=== PATIENT | female | born 1925 | race Caucasian/White ===

== ENCOUNTER 2016-11-16 15:03 | Inpatient (IN) | payer BC ==
[~2016-11-16] VITALS: Ht 167.6 cm; Wt 86.0 kg
[2016-11-16] MEDS ORDERED: ELIQUIS2.5 MG PO (15:13)
[2016-11-16] MEDS ORDERED: COZAAR100 MG PO (15:13)
[2016-11-16] MEDS ORDERED: LIPITOR80 MG PO (15:14)
[2016-11-16] MEDS ORDERED: HYDROCHLOROTHIA25 MG PO (15:15)
[2016-11-16] MEDS ORDERED: METOPROLOL TAR100 MG PO (15:15)
[2016-11-16] MEDS ORDERED: METOPROLOL TART50 MG PO (15:15)
[2016-11-16] MEDS ORDERED: MAGNESIUM250 MG PO (15:16)
[2016-11-16] MEDS ORDERED: FISH OIL 1,0001 EAC7 PO (15:16)
[2016-11-16] MEDS ORDERED: CALCIUM500 M4 PO (15:17)
[2016-11-16] MEDS ORDERED: VITAMIN D2000 UNI1 PO (15:18)
[2016-11-16 16:16] LABS: EOSINOPHIL (%) 1.7 % (0-5); EOSINOPHIL COUNT 0.2 K/uL (0-0.3); HEMATOCRIT 40.6 % (36.0-46.0); IMMATURE GRANULOCYTE (%) 0.6 % (0.0-0.7); IMMATURE GRANULOCYTE COUNT 0.1 K/uL; INSTRUMENT ABS NEUTROPHIL CT 7.7 K/uL; LYMPHOCYTE COUNT 1.9 K/uL (1.0-2.8); MCH 29.8 PG (29.0-34.0); MCHC 32.5 G/DL (30.0-36.0); MCV 91.6 FL (83-99); MEAN PLAT.VOLUME 10.2 uM^3 (9.5-12.4); MONOCYTE (%) 6.9 % (3-12); MONOCYTE COUNT 0.7 K/uL (0-0.8); NEUTROPHIL (%) 72.9 % (45-76); NEUTROPHIL COUNT 7.7 K/uL (1.8-6.4); PLATELET COUNT 178 K/uL (156-360); RBC DIS.WIDTH-CV 14.2 % (11.8-14.6); RBC DIS.WIDTH-SD 47.8 % (39-53); RED BLOOD COUNT 4.43 M/uL (3.80-5.20); WHITE BLOOD COUNT 10.5 K/uL (4.1-10.2)
[2016-11-16 16:24] LABS: CHLORIDE 108 mEq/L (99-109); SODIUM 140 mEq/L (136-147)
[2016-11-16 16:26] LABS: GLUCOSE 105 mg/dL (70-99); INTER. NORMALIZED RATIO 1.1; PROTHROMBIN TIME 11.1 (9.2-11.2); PTT 28.7 (25-32)
[2016-11-16 16:27] LABS: ANION GAP 11 MEQ/L (2-14)
[2016-11-16 16:29] LABS: GFR ESTIMATE (CALCULATED) 55 mL/min/
[2016-11-16 16:30] LABS: UREA NITROGEN (BUN) 29 mg/dL (9-23)
[2016-11-16] MEDS ORDERED: ELIQUIS5 MG PO (17:44)
[2016-11-16] MEDS ORDERED: STOOL SOFTENER250 MG PO (17:50)
[2016-11-16 20:12] LABS: TROP-I INTERPRETATION NEGATIVE; TROPONIN-I 0.03 ng/mL (0.0-0.30)
[2016-11-16 20:55] VITALS: BP 151/86
[2016-11-16 23:45] VITALS: BP 116/63
[2016-11-17 00:42] LABS: ADD MIUA? NO; BILIRUBIN NEGATIVE; BLOOD NEGATIVE; COLOR YELLOW ((YELLOW)); GLUCOSE (STRIP) NEGATIVE; KETONES NEGATIVE; LEUKOCYTES NEGATIVE; NITRITE NEGATIVE; PROTEIN (STRIP) NEGATIVE; SPECIFIC GRAVITY 1.017 (1.000-1.030); UCUL ADDED? NO; UROBILINOGEN 0.2 MG/DL (0.2-1.0)
[2016-11-17 03:29] LABS: TROP-I INTERPRETATION NEGATIVE; TROPONIN-I 0.09 ng/mL (0.0-0.30)
[2016-11-17 03:53] VITALS: BP 116/58
[2016-11-17 07:48] LABS: HEMATOCRIT 36.1 % (36.0-46.0); MCH 29.9 PG (29.0-34.0); MCHC 32.1 G/DL (30.0-36.0); MEAN PLAT.VOLUME 10.2 uM^3 (9.5-12.4); PLATELET COUNT 155 K/uL (156-360); RBC DIS.WIDTH-CV 14.5 % (11.8-14.6); RBC DIS.WIDTH-SD 49.9 % (39-53); RED BLOOD COUNT 3.88 M/uL (3.80-5.20); WHITE BLOOD COUNT 9.9 K/uL (4.1-10.2)
[2016-11-17 08:12] LABS: ALKALINE PHOSPHATASE 54 IU/L (3-129); ANION GAP 7 MEQ/L (2-14); CHLORIDE 108 MEQ/L (99-109); GFR ESTIMATE (CALCULATED) > 59 mL/min/; GLUCOSE 106 mg/dL (70-99); POTASSIUM 3.9 MEQ/L (3.7-5.4); SAMPLE HEMOLYSIS CHECK 0; SAMPLE ICTERIC CHECK 0; SAMPLE LIPEMIA CHECK 0; SODIUM 138 MEQ/L (136-147); TOTAL BILIRUBIN 0.8 MG/DL (0.0-1.0); UREA NITROGEN (BUN) 21 mg/dL (9-23)
[2016-11-17 08:15] LABS: TROP-I INTERPRETATION NEGATIVE; TROPONIN-I 0.09 ng/mL (0.0-0.30)
[2016-11-17 08:17] VITALS: BP 120/58
[2016-11-17 12:10] VITALS: BP 137/92
[2016-11-17 15:14] LABS: HEMATOCRIT 37.3 % (36.0-46.0); MCH 30.3 PG (29.0-34.0); MCHC 31.6 G/DL (30.0-36.0); MCV 95.6 FL (83-99); MEAN PLAT.VOLUME 10.5 uM^3 (9.5-12.4); PLATELET COUNT 147 K/uL (156-360); RBC DIS.WIDTH-CV 14.6 % (11.8-14.6); RBC DIS.WIDTH-SD 51.4 % (39-53)
[2016-11-17 15:19] LABS: WHITE BLOOD COUNT 18.8 K/uL (4.1-10.2)
[2016-11-17 16:23] VITALS: BP 146/82
[2016-11-17 19:28] VITALS: BP 115/59
[2016-11-17 23:29] VITALS: BP 123/61
[2016-11-18] VITALS (7 sets, daily range): BP systolic 74–131; BP diastolic 50–62
[2016-11-18 05:52] LABS: ANION GAP 9 MEQ/L (2-14); CHLORIDE 105 MEQ/L (99-109); GFR ESTIMATE (CALCULATED) > 59 mL/min/; GLUCOSE 112 mg/dL (70-99); POTASSIUM 3.5 MEQ/L (3.7-5.4); SAMPLE HEMOLYSIS CHECK 0; SAMPLE ICTERIC CHECK 0; SAMPLE LIPEMIA CHECK 0; SODIUM 135 MEQ/L (136-147); UREA NITROGEN (BUN) 15 mg/dL (9-23)
[2016-11-18 06:33] LABS: HEMATOCRIT 33.1 % (36.0-46.0); MCH 30.6 PG (29.0-34.0); MCHC 33.2 G/DL (30.0-36.0); MCV 92.2 FL (83-99); MEAN PLAT.VOLUME 10.4 uM^3 (9.5-12.4); PLATELET COUNT 140 K/uL (156-360); RBC DIS.WIDTH-CV 14.5 % (11.8-14.6); RBC DIS.WIDTH-SD 48.9 % (39-53); RED BLOOD COUNT 3.59 M/uL (3.80-5.20)
[2016-11-18 07:07] LABS: WHITE BLOOD COUNT 11.2 K/uL (4.1-10.2)
[2016-11-18 17:28] LABS: HEMATOCRIT 29.9 % (36.0-46.0); MCV 93.4 FL (83-99)
[2016-11-19] VITALS (11 sets, daily range): BP systolic 81–118; BP diastolic 40–59
[2016-11-19 05:46] LABS: HEMATOCRIT 29.7 % (36.0-46.0); MCH 29.8 PG (29.0-34.0); MCV 93.1 FL (83-99); MEAN PLAT.VOLUME 10.6 uM^3 (9.5-12.4); PLATELET COUNT 119 K/uL (156-360); RBC DIS.WIDTH-CV 14.6 % (11.8-14.6); RBC DIS.WIDTH-SD 49.2 % (39-53); RED BLOOD COUNT 3.19 M/uL (3.80-5.20); WHITE BLOOD COUNT 12.2 K/uL (4.1-10.2)
[2016-11-19 06:14] LABS: ANION GAP 6 MEQ/L (2-14); CHLORIDE 105 MEQ/L (99-109); GFR ESTIMATE (CALCULATED) 41 mL/min/; GLUCOSE 85 mg/dL (70-99); POTASSIUM 3.7 MEQ/L (3.7-5.4); SAMPLE HEMOLYSIS CHECK 0; SAMPLE ICTERIC CHECK 0; SAMPLE LIPEMIA CHECK 0; SODIUM 133 MEQ/L (136-147)
[2016-11-19 06:17] LABS: UREA NITROGEN (BUN) 25 mg/dL (9-23)
[2016-11-20 04:23] VITALS: BP 110/74
[2016-11-20 05:53] LABS: HEMATOCRIT 28.2 % (36.0-46.0); MCH 30.1 PG (29.0-34.0); MCV 91.3 FL (83-99); MEAN PLAT.VOLUME 10.9 uM^3 (9.5-12.4); PLATELET COUNT 126 K/uL (156-360); RBC DIS.WIDTH-CV 14.6 % (11.8-14.6); RBC DIS.WIDTH-SD 49.3 % (39-53); RED BLOOD COUNT 3.09 M/uL (3.80-5.20); WHITE BLOOD COUNT 9.8 K/uL (4.1-10.2)
[2016-11-20 06:07] LABS: ANION GAP 8 MEQ/L (2-14); CHLORIDE 105 MEQ/L (99-109); GFR ESTIMATE (CALCULATED) 55 mL/min/; GLUCOSE 91 mg/dL (70-99); POTASSIUM 3.5 MEQ/L (3.7-5.4); SAMPLE HEMOLYSIS CHECK 0; SAMPLE ICTERIC CHECK 0; SAMPLE LIPEMIA CHECK 0; SODIUM 133 MEQ/L (136-147); UREA NITROGEN (BUN) 27 mg/dL (9-23)
[2016-11-20 08:30] VITALS: BP 108/58
[2016-11-20 11:10] VITALS: BP 96/52
[2016-11-20 16:16] VITALS: BP 108/59
[2016-11-20 17:02] LABS: CHLORIDE 107 mEq/L (99-109); POTASSIUM 4.2 mEq/L (3.7-5.4); SODIUM 135 mEq/L (136-147)
[2016-11-20 17:03] LABS: MAGNESIUM 1.8 mg/dL (1.3-2.7)
[2016-11-20 17:04] LABS: GLUCOSE 97 mg/dL (70-99)
[2016-11-20 17:06] LABS: ANION GAP 10 MEQ/L (2-14)
[2016-11-20 17:08] LABS: GFR ESTIMATE (CALCULATED) 55 mL/min/
[2016-11-20 17:09] LABS: UREA NITROGEN (BUN) 31 mg/dL (9-23)
[2016-11-20 19:44] VITALS: BP 114/60
[2016-11-20 23:33] VITALS: BP 114/53
[2016-11-21 04:21] VITALS: BP 143/69
[2016-11-21 05:34] LABS: ANION GAP 7 MEQ/L (2-14); CHLORIDE 107 MEQ/L (99-109); GFR ESTIMATE (CALCULATED) > 59 mL/min/; GLUCOSE 92 mg/dL (70-99); POTASSIUM 4.2 MEQ/L (3.7-5.4); SAMPLE HEMOLYSIS CHECK 0; SAMPLE ICTERIC CHECK 0; SAMPLE LIPEMIA CHECK 0; SODIUM 135 MEQ/L (136-147); UREA NITROGEN (BUN) 26 mg/dL (9-23)
[2016-11-21 05:36] LABS: HEMATOCRIT 27.6 % (36.0-46.0); MCH 29.6 PG (29.0-34.0); MCHC 32.6 G/DL (30.0-36.0); MCV 90.8 FL (83-99); MEAN PLAT.VOLUME 10.4 uM^3 (9.5-12.4); PLATELET COUNT 160 K/uL (156-360); RBC DIS.WIDTH-CV 14.9 % (11.8-14.6); RBC DIS.WIDTH-SD 49.8 % (39-53); RED BLOOD COUNT 3.04 M/uL (3.80-5.20); WHITE BLOOD COUNT 8.8 K/uL (4.1-10.2)
[2016-11-21 08:20] VITALS: BP 142/62
[2016-11-21] MEDS ORDERED: OXYCODONE-APAP1 EACH PO (11:16)
[2016-11-21] MEDS ORDERED: LOPRESSOR25 MG PO (11:16)
[2016-11-21] MEDS ORDERED: CELECOXIB200 MG PO (11:16)
[2016-11-21 11:29] VITALS: BP 146/78
== END 2016-11-21 14:55 | DRG 470 ==
LOC: EME 15:03 → 3EAST 17:55 → EDOF 17:55 → 3EAST 20:27
PROVIDERS: Emergency Medicine; Internal Medicine; Nurse Practitioner Family; Orthopaedic Surgery; Physician Assistant
PROC: 0SR902A Replacement of Right Hip Joint with Metal on Polyethylene Synthetic Substitute, Uncemented, Open Approach (ICD-10-PCS; principal; 2016-11-16)
DX: S72.011A Unspecified intracapsular fracture of right femur, initial encounter for closed fracture (principal); I48.2 Chronic atrial fibrillation; I10 Essential (primary) hypertension; I25.10 Atherosclerotic heart disease of native coronary artery without angina pectoris; Z95.5 Presence of coronary angioplasty implant and graft; J44.9 Chronic obstructive pulmonary disease, unspecified; E78.00 Pure hypercholesterolemia, unspecified; H81.10 Benign paroxysmal vertigo, unspecified ear; E78.5 Hyperlipidemia, unspecified; Z87.891 Personal history of nicotine dependence
CPT/HCPCS: 70450; 71010; 73501; 73502; 80048; 80048 91; 80053; 81003; 82948; 83605; 83735; 84484; 85014; 85018; 85025; 85027; 85610; 85730; 86850; 86900; 86901; 93005; 94799; 99281; 99285; J0330; J0690; J2270; J2405; J3010; J7030; J7040; S0028